=== PATIENT | female | born 1935 | race Caucasian/White ===

== ENCOUNTER 2017-05-20 12:39 | Outpatient (CLI) | payer OTHER | END 2017-05-20 18:58 | disposition home or self-care (01) | LOC: SMA 12:39 | PROVIDERS: ATTEND Family Medicine | DX: C50.911 Malignant neoplasm of unspecified site of right female breast (principal); N64.89 Other specified disorders of breast | CPT/HCPCS: 76641; G0204 ==

== ENCOUNTER 2018-03-10 16:45 | Emergency (ER) | payer OTHER ==
[~2018-03-10] VITALS: Ht 152.4 cm; Wt 95.3 kg
[2018-03-10 16:56] VITALS: BP_SYST 160
[2018-03-10] MEDS ORDERED: SULFAMETHOXAZOLE/TRIMETHOPR DS 1 TABLET PO ONE (18:00)
== END 2018-03-10 18:04 | disposition home or self-care (01) ==
LOC: SED 16:45
DX: L03.116 Cellulitis of left lower limb (principal); Z85.3 Personal history of malignant neoplasm of breast; Z90.710 Acquired absence of both cervix and uterus; Z90.49 Acquired absence of other specified parts of digestive tract
CPT/HCPCS: 93971; 99284

== ENCOUNTER 2018-04-06 15:58 | Outpatient (CLI) | payer OTHER | END 2018-04-06 20:13 | disposition home or self-care (01) | LOC: SRD 15:58 | PROVIDERS: ATTEND Family Medicine | DX: I51.7 Cardiomegaly (principal) | CPT/HCPCS: 71046-TC ==

== ENCOUNTER 2018-11-10 10:48 | Outpatient (CLI) | payer OTHER | END 2018-11-10 21:19 | disposition home or self-care (01) | LOC: SMA 10:48 | PROVIDERS: ATTEND Family Medicine | DX: N60.02 Solitary cyst of left breast (principal); N60.01 Solitary cyst of right breast | CPT/HCPCS: 76641; 77066 ==

== ENCOUNTER 2019-06-06 11:25 | Outpatient (CLI) | payer OTHER | END 2019-06-06 18:28 | disposition home or self-care (01) | LOC: SMA 11:25 | PROVIDERS: ATTEND Family Medicine | DX: R92.8 Other abnormal and inconclusive findings on diagnostic imaging of breast (principal) | CPT/HCPCS: 76641; 77066 ==